=== PATIENT | male | born 1985 | race Hispanic/Latino ===

== ENCOUNTER 2022-02-18 05:55 | Emergency (ER) | payer SELFPAY ==
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
[2022-02-18 06:06] VITALS: BP 134/90
[2022-02-18] MEDS ORDERED: NS 1000ML 1,000 ML IV ONE ×2 (06:30→07:00)
[2022-02-18] MEDS ORDERED: NS 1000ML 1,000 ML ONE ×2 (06:33→07:48)
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
--- NOTE | 2022-02-18 06:42 | PCM.EKG ---
[facility] Test Date: 2022-02-18 Test Time: 06:35:52 Pat Name: FRED MURPHY Department: Patient ID: [id number] Room: Gender: M [place] Worker: : 1985 Requested By: CAROLYN AGUILERA Order Number: [id number] Reading MD: Measurements Intervals [place] Rate: 90 P: 62 CO: 150 QRS: 55 QRSD: 93 T: 42 QT: 370 QTc: 453 Interpretive Statements Sinus rhythm Ventricular bigeminy Baseline wander in lead(s) V2 No previous ECG available for comparison Please click the below link to view image of tracing.
[2022-02-18 07:13] LABS: BASOPHIL % 0.2 % (0.0-0.2); EOSINOPHIL # 0.1 10^3/uL (0.0-0.2); EOSINOPHIL % 1.1 % (0.0-5.0); LYMPHOCYTES # 1.29 10^3/uL1 (1.0-4.8); LYMPHOCYTES % 15.6 % (24.0-44.0); MEAN CORP HGB 32.8 pg (26-34); MONOCYTES # 0.9 10^3/uL (0.3-0.8); MONOCYTES % 10.7 % (5.0-12.0); NEUTROPHILS % 72.2 % (41.0-85.0); RED CELL DISTRIBUTION WIDTH 12.7 % (11.5-14.5)
[2022-02-18 07:13] LABS: CARBON DIOXIDE 25.9 mmol/L (20.0-32)
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
[2022-02-18 08:36] VITALS: BP 134/90
== END 2022-02-18 08:37 ==
LOC: ER 05:55
DX: S10.93XA Contusion of unspecified part of neck, initial encounter (principal); E86.0 Dehydration; R00.8 Other abnormalities of heart beat; K21.9 Gastro-esophageal reflux disease without esophagitis; F15.129 Other stimulant abuse with intoxication, unspecified; F17.210 Nicotine dependence, cigarettes, uncomplicated; Z02.89 Encounter for other administrative examinations; Y35.833A Legal intervention involving a conducted energy device, suspect injured, initial encounter; Y93.89 Activity, other specified; Y92.89 Other specified places as the place of occurrence of the external cause; Y99.8 Other external cause status
CPT/HCPCS: 99285; 96360; 72125; 96361; 80053; 85025; 36415; 84484; 80307; 82077; 82550; 83735; 93005; J7030 ×2